=== PATIENT | female | born 1960 | race Caucasian/White ===

== ENCOUNTER → 2020-08-18 11:11 | Outpatient (CLI) | payer OTHER, SELFPAY ==
[2020-08-18 13:01] LABS: COVID19 -Nasal RAPID Negative (Negative)
== END ==
PROVIDERS: Family Provider Family Medicine; PCP Family Medicine; Visit Provider Physician Assistant
DX: Z01.812 Encounter for preprocedural laboratory examination (principal); Z20.822 Contact with and (suspected) exposure to COVID-19
CPT/HCPCS: 87635

== ENCOUNTER 2020-08-20 13:45 | Day surgery (SDC) | payer OTHER, SELFPAY ==
--- NOTE | 2020-08-20 | PATH_ITS ---
[facility] Accession Number: [id number] . 01 Material submitted: . PART A: rectum - RECTAL POLYP PART B: colon - TRANSVERSE COLON - POLYP PART C: colon - RANDOM TISSUE COLON . 02 Diagnosis: A. Rectum, Polyp, Biopsy: Hyperplastic polyp. . B. Transverse Colon, Polyp, Biopsy: Tubular adenoma. . C. Random Colon, Biopsies: Lymphocytic colitis. Negative for granulomas, dysplasia and malignancy. MRV 08/26/2020 1107 Local . 02 Electronically signed: . Veronica Sheriff MD, Pathologist NPI- [id number] . 01 Gross description: . Part A: RECTAL POLYP: Received in formalin are 2 fragment(s) of hadley, soft tissue measuring 0.2 x 0.2 x 0.2 cm to 0.4 x 0.2 x 0.2 cm submitted entirely in 1 cassette(s) Part B: TRANSVERSE COLON - POLYP: Received in formalin is 1 fragment(s) of hadley, soft tissue measuring 0.2 x 0.2 x 0.1 cm submitted entirely in 1 cassette(s) Part C: RANDOM TISSUE COLON: Received in formalin are multiple fragment(s) of hadley, soft tissue measuring 0.1 x 0.1 x 0.1 cm to 0.4 x 0.3 x 0.3 cm submitted entirely in 1 cassette(s) /MARGARITA 08/22/2020 1859 Local . 02 Pathologist provided ICD-10: D12.3, K52.89 . 02 CPT . 398215, [id number], [id number] Performed at: [address], [place], [place] [id number] MD Darrian Olivera MD Phone: [phone] Performed at: 02 [facility] [place] [address] [place] [id number] MD Veronica Sheriff MD Phone: [phone]
[2020-08-20 14:04] VITALS: BP 134/83; PULSE 74; RESP 13; TEMP 36.9; O2SAT 100; BMI 31.7
[2020-08-20 14:24] VITALS: BMI 31.7
[2020-08-20] MEDS: LACTATED RINGERS 1,000 ML 200 ML IV (14:24)
--- NOTE | 2020-08-20 15:25 | P.HP_ITS ---
History of Present Illness History of Present Illness Chief complaint: [facility] Patient History Medical History (Updated 08/20/20 @ 14:19 by Елена Oleary RN) Diabetes High cholesterol Hypertension Family & Social History Social History: household members spouse Tobacco & Substance use: Smoking Status Never smoker alcohol intake current alcohol intake frequency 0-2 drinks per day Substance Use Type does not use Meds Home Medications and Allergies Home Medications Medication Instructions Recorded Confirmed Type hydrocodone-acetaminophen [[place]] 1 - 2 tab PO Q4HP PRN #60 tab 05/06/16 Rx atorvastatin 08/20/20 History celecoxib mg 08/20/20 History famotidine 08/20/20 History hydrochlorothiazide 08/20/20 History insulin NPH isoph U-100 human unit SUBCUT 08/20/20 History [Humulin N NPH Insulin KwikPen] losartan 08/20/20 History metformin mg 08/20/20 History sertraline mg 08/20/20 History spironolactone 08/20/20 History Allergies Allergy/AdvReac Type Severity Reaction Status Date / Time amoxicillin [AMOXICILLIN] Allergy Severe Hives Unverified 08/20/20 14:14 lisinopril [LISINOPRIL] Allergy Severe Cough Unverified 08/20/20 14:14 Penicillins [PENICILLINS] Allergy Severe HIVES Unverified 08/03/17 12:09 Sulfa (Sulfonamide Allergy Severe HIVES Unverified 08/03/17 12:09 Antibiotics) [SULFA (SULFONAMIDE ANTIBIOTICS)] cephalexin [CEPHALEXIN] Allergy Intermediate HIVES Unverified 08/03/17 12:09 latex [LATEX] Allergy Intermediate RASH Unverified 08/03/17 12:09 Review of Systems Review of Systems ROS: Yes All systems reviewed with the patient and are negative except as otherwise documented Exam Vital Signs (past 8 hours): - 08/20/20 14:04 Temperature 98.4 F Pulse Rate 74 Respiratory Rate 13 Blood Pressure 134/83 Pulse Oximetry 100 Oxygen Delivery Method Room Air Narrative Exam Narrative: Awake alert and oriented x3, pupils equal round reactive to light, oropharynx clear, heart regular rate and rhythm, lungs clear to auscultation bilaterally, abdomen nontender and nondistended, extremities without edema, no gross neurologic deficits noted Assessment & Plan Assessment & Plan narrative: Fecal urgency, fecal incontinence, diarrhea, dysphagia, heartburn for colonoscopy and possibly EGD COVID-19 COVID-19 status: Negative
[2020-08-20] MEDS: fentaNYL 250 MCG/5 ML INJ IV (15:39)
[2020-08-20] MEDS: MIDAZOLAM 5 MG/5 ML VIAL IV (15:41)
[2020-08-20 16:00] VITALS: BP 129/77; PULSE 85; RESP 12; TEMP 37.1; O2SAT 98
--- NOTE | 2020-08-20 16:01 | PM.OP.ENDO ---
Operative Date/Time/Diagnoses Date of procedure: 08/20/20 Procedure & Clinicians Study performed: Colonoscopy with forceps and snare polypectomy Moderate conscious sedation was administered by the endoscopy nurse and supervised by the endoscopist. The following parameters were monitored: Oxygen saturation, heart rate, blood pressure, and response to care. 7 mg midazolam, 150mcg fentanyl given Same procedure as scheduled: Yes Indications: Diarrhea, fecal incontinence with fecal urgency. Last colonoscopy was about 3 years ago Procedure Notes Procedure in detail: Prior to the procedure, history and physical was performed, and patient medications and allergies were reviewed. Preprocedure nursing history and assessment was reviewed. Patient identification and proposed procedure were verified by the physician and nurse in the procedure room. The physical status of the patient was reassessed after the procedure. After informed consent was obtained including risks, benefits, and alternatives, the scope was passed under direct vision. Throughout the procedure, the patient's blood pressure, pulse, and oxygen saturations were monitored continuously. The colonoscope was introduced through the anus and advanced to the cecum and terminal ileum. Appendiceal orifice and ileocecal valve identified. The patient tolerated the procedure well. Bowel prep was deemed adequate to detect polyps greater than 5 mm. Perianal examination and MATI were unremarkable. Retroflexion in the rectum revealed grade 2 internal hemorrhoids. Two 3 mm sessile polyps were removed from the rectum using a Jumbo cold forceps and retrieved A 4 mm sessile polyp in the transverse colon was removed using a cold snare and retrieved The remainder of the colon was normal appearing. Random colon biopsies taken to rule out microscopic colitis The terminal ileum was normal appearing. Impression: Internal hemorrhoids Two 3 mm polyps removed from the rectum 4 mm polyp removed from the transverse colon Normal appearing colonic mucosa. Biopsied to rule out microscopic colitis. Normal appearing terminal ileum Complications: other (EBL minimal. No complications) Post-procedure Plan for aftercare: Follow-up pathology results Repeat colonoscopy at a date to be determined based on pathology results Schedule EGD at the next available appointment Follow-up in GI clinic after EGD Resume home medications Resume previous diet Patient has a contact number available for emergencies. The signs and symptoms of potential delayed complications were discussed with the patient. Return to normal activities tomorrow. Written discharge instructions were provided to the patient. Discharge home with escort
[2020-08-20 16:05] VITALS: BP 140/71; PULSE 83; RESP 12; O2SAT 98
[2020-08-20 16:10] VITALS: BP 153/86; PULSE 76; RESP 14; O2SAT 97
[2020-08-20 16:15] VITALS: BP 123/67; PULSE 76; RESP 12; O2SAT 97
[2020-08-20 16:40] VITALS: BP 121/67; PULSE 76; RESP 15; TEMP 36.7; O2SAT 99
== END 2020-08-20 16:42 | disposition home or self-care (01) ==
PROVIDERS: Family Provider Family Medicine; PCP Internal Medicine; Referring Provider Internal Medicine; Visit Provider Internal Medicine
PROC: 0DJ08ZZ Inspection of Upper Intestinal Tract, Via Natural or Artificial Opening Endoscopic (ICD-10-PCS; CPT 43235; principal; 2020-08-20 15:00)
PROC: 0DJD8ZZ Inspection of Lower Intestinal Tract, Via Natural or Artificial Opening Endoscopic (ICD-10-PCS; CPT 45378; 2020-08-20 15:00)
DX: K52.832 Lymphocytic colitis (principal); R15.2 Fecal urgency; R13.14 Dysphagia, pharyngoesophageal phase; R12 Heartburn; I10 Essential (primary) hypertension; E78.00 Pure hypercholesterolemia, unspecified; E11.9 Type 2 diabetes mellitus without complications; Z79.4 Long term (current) use of insulin; K64.1 Second degree hemorrhoids; D12.3 Benign neoplasm of transverse colon
CPT/HCPCS: 45385; J2250; J3010

== ENCOUNTER → 2020-10-01 08:37 | Outpatient (CLI) | payer OTHER, SELFPAY ==
[2020-10-01 13:25] LABS: COVID19 -Nasal RAPID Negative (Negative)
== END ==
PROVIDERS: Family Provider Family Medicine; PCP Internal Medicine; Visit Provider Physician Assistant
DX: Z01.812 Encounter for preprocedural laboratory examination (principal); Z20.822 Contact with and (suspected) exposure to COVID-19
CPT/HCPCS: 87635

== ENCOUNTER → 2020-10-02 06:36 | Day surgery (SDC) | payer OTHER, SELFPAY ==
[2020-09-29 15:07] VITALS: BMI 32.0
[2020-10-02 06:59] VITALS: BMI 32.0
[2020-10-02 07:00] VITALS: BP 117/77; PULSE 74; RESP 16; TEMP 37.3; O2SAT 99
[2020-10-02] MEDS: LACTATED RINGERS 1,000 ML 42 ML IV ×2 (07:32→08:23)
--- NOTE | 2020-10-02 07:35 | PM.PREOP ---
Pre-operative Note COVID-19 COVID-19 status: Negative Interval Note History & Physical reviewed/Exam performed by Physician: Yes Changes to H&P: No
[2020-10-02] MEDS: MIDAZOLAM 2 MG/2 ML VIAL IV (07:36)
[2020-10-02] MEDS: fentaNYL 100 MCG/2 ML INJ IV (07:37)
--- NOTE | 2020-10-02 07:53 | SUR.PREOP ---
Addendum entered by Elsie Hawkins R.N. 10/02/20 07:56: needle in at 0737 need out 0743. See EMR for meds. Original Note: Block start time 0735. Time out done. Monitoring initiated and maintained throughout procedure. Oxygen and 2L via NC placed and medications given by this RN per anesthesiologist instructions. Patient remained stable throughout procedure, no adverse reactions noted. Block end time 0743.
[2020-10-02] MEDS: CLINDAMYCIN 900 MG/50 ML PIGGYBACK 50 MG IV (07:55)
--- NOTE | 2020-10-02 08:06 | SUR.PREOP ---
5534 charting should have been at 0750
[2020-10-02] MEDS: SODIUM CHLORIDE IRRIG SOLUTION 3,000 ML, EPINEPHrine 1 MG IRR (08:25)
[2020-10-02] MEDS: BUPIVACAINE 0.5% W/ EPI (PF) 30 ML VIAL INJ (08:25)
--- NOTE | 2020-10-02 08:28 | SUR.OPER ---
Beach chair with Maquet shoulder positioner. Lower body on padded OR bed. Head in foam padded head cradle, secured with straps. Non-operative arm secured <90 degrees abduction. Pillow under knees. Safety belt at thigh. Cloth tape over blanket over lower legs.
[2020-10-02 09:16] VITALS: BP 130/71; PULSE 100; RESP 16; TEMP 36.7; O2SAT 94
--- NOTE | 2020-10-02 09:19 | PM.OP.1 ---
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 Debridement of the rotator cuff as well as a subacromial decompression and distal clavicle excision Same procedure as scheduled: Yes Indications: Patient with right shoulder impingement as well as arthritic changes to the glenohumeral joint and AC joint and rotator cuff pathology that was unresponsive to conservative treatment. Surgeon: Ishaan Diallo Gas Jockey: Ronaldo Ward Anesthesia Type: General and Peripheral nerve block Operative Notes Findings: Signs of arthritic changes to the glenohumeral joint with thinning of the cartilage but no sign of any full-thickness cartilage loss. Significant degenerative changes throughout the labrum particularly superiorly. Almost complete tear of the biceps tendon. With degenerative changes throughout the joint as well as partial tearing mainly involving the supraspinatus. Infraspinatus and subscapularis had signs of tendinopathy but no significant tearing. Quite a bit of synovitis in the glenohumeral joint. Subacromial space had increased fluid in the subacromial and subdeltoid space. Bursal side of the rotator cuff had some mild fraying but no sign of any high-grade partial tears or full-thickness tears. AC joint arthritis as well as impingement lesions. Significant synovitis as well as bursitis throughout the subacromial and subdeltoid space. Closure Type: primary Specimen(s): none sent Estimated Blood Loss (mL): 5 Procedure in detail: On date of service, Patient was met in the holding area. The operative site was signed and witnessed by the OR staff. The surgeries once again discussed with the patient and any remaining questions they had were answered fully. Patient was taken back to the operating theater and placed on the operating table in a supine position. Great care was taken to ensure that all bony prominences were properly padded. Patient was then placed into the beach chair position. The head and neck were properly positioned and secured. A timeout was performed verifying patient's name, procedure, and the operative site. The upper extremity was then prepped and draped in the normal sterile fashion. Previously, the bony anatomy and portal sites were marked out as well as injected with Marcaine with epinephrine. An 11 blade was used to make an incision in the posterior aspect of the shoulder. The camera was placed, and a diagnostic shoulder scope was performed. Findings listed above. Next under direct visualization, a anterior portal was made. Shaver was brought in through the anterior portal and extensive debridement of the glenohumeral joint was performed. Shaver was used to debride the degenerative changes throughout the labrum particularly the superior labrum. The biceps tendon was showing signs of high-grade tearing. Tenotomy was performed in the remaining tissue was debrided. Partial tearing to the articular surface mainly of the supraspinatus mild to moderate but no sign of any high-grade partial tears. This was also debrided using the shaver. This patient had degenerative changes throughout the glenohumeral joint with signs of synovitis which was also debrided using the shaver. Next the camera was placed into the subacromial space. A lateral portal was obtained under direct visualization. A combination of the shaver and vapor wand, a debridement of the inflamed tissue as well as inflamed bursa was performed in the subacromial and subdeltoid space.. The lateral gutter was also cleaned out. This gave us good visualization of the bursal aspect of the rotator cuff as well as the acromial arch. There was an obvious impingement lesion in the acromial arch. Next we turned our attention to the subacromial decompression. Next, a mechanical rasp was then used to do a subacromial decompression. This allowed us to convert the acromion to a type I acromial. This also allowed us to shave down the bony lesion in the acromial space. The rasp was placed into the lateral portal as well as the anterior portal in order to do a complete subacromial decompression. We next turned our attention to the distal clavicle. Using the shaver in the vapor wand we were able to clean out all the soft tissue around the distal clavicle as well as into the a.c. joint. This gave us good visualization of the arthritic changes to the distal clavicle as well as good of the a.c. joint allowing us to assess our distal clavicle excision. Of the inferior osteophytes coming off the distal clavicle. Using the mechanical rasp in the anterior portal, we were able to remove the inferior osteophytes as well as do a distal clavicle excision. The camera was then placed into the anterior portal which gave us a direct visualization of the a.c. joint allowing us to assess the distal clavicle excision. We then turned our attention to the rotator cuff tear. There was no signs of any high-grade partial bursal sided tears. Shaver was used to debride the frayed tissue of the rotator cuff as well as to remove any remaining inflamed bursal tissue. The shoulder was then taken through range of motion and there was no sign of any additional impingement. Patient's shoulder was then cleaned dried and dressed and patient was taken to the PACU in stable condition. Complications: none Post-operative Condition: stable Disposition: PACU Plan for aftercare: Patient will follow our postoperative protocol for subacromial decompression with distal clavicle excision
[2020-10-02 09:21] VITALS: BP 126/78; BP 145/76; PULSE 93; PULSE 97; RESP 14; RESP 16; O2SAT 94; O2SAT 95
[2020-10-02 09:39] VITALS: BP 126/78; PULSE 94; RESP 16; TEMP 36.7; O2SAT 95
[2020-10-02 10:02] VITALS: BP 122/74; PULSE 78; RESP 16; TEMP 36.7; O2SAT 98
== END | disposition home or self-care (01) ==
PROVIDERS: Family Provider Family Medicine; PCP Internal Medicine; Referring Provider Internal Medicine; Visit Provider Orthopaedic Surgery
PROC: (CPT 29827; principal; 2020-10-02 07:45)
DX: M75.111 Incomplete rotator cuff tear or rupture of right shoulder, not specified as traumatic (principal); M75.51 Bursitis of right shoulder; M75.21 Bicipital tendinitis, right shoulder; M75.41 Impingement syndrome of right shoulder; M65.811 Other synovitis and tenosynovitis, right shoulder; M19.011 Primary osteoarthritis, right shoulder; M25.711 Osteophyte, right shoulder; E66.9 Obesity, unspecified; I10 Essential (primary) hypertension; E78.5 Hyperlipidemia, unspecified; E11.9 Type 2 diabetes mellitus without complications; F32.9 Major depressive disorder, single episode, unspecified; M06.9 Rheumatoid arthritis, unspecified; W18.30XA Fall on same level, unspecified, initial encounter; Z68.32 Body mass index [BMI] 32.0-32.9, adult; Z79.4 Long term (current) use of insulin
CPT/HCPCS: 29823; 29824; 29826; 64415; J0171; J0330; J1100; J2250; J2405; J2704; J3010

== ENCOUNTER → 2022-08-24 09:00 | Outpatient (CLI) | payer OTHER, SELFPAY ==
--- NOTE | 2022-08-24 | DI.ECHO.S_ITS ---
Version: 1 Study ID: [id number] [place] [address] Name: KAYLA PAREDES Study Date: 08/24/2022, 9: 18 AM : 1960 BP: 150 / 95 mmHg Gender: Female Height: 69 in Age: 61 Years Weight: 220 lb BSA: 2.15 mA? Ordering: LÓPEZ JOSHI Referring: LÓPEZ JOSHI Clinician: Yancy Godoy Reason For Study: CARDIAC MURMUR History: Summary Statements Normal sinus rhythm. Normal LV size and wall thickness. Normal wall motion and LV systolic function. EF is 55-60%. Stage I diastolic dysfunction. Moderate MAC without associated significant regurgitation Aortic valve leaflets are mildly thickened and calcified with mild associated aortic stenosis. Peak velocity is 2.3 m/sec with mean gradient of 13 mm Hg. Procedure: A two-dimensional transthoracic echocardiogram with color flow and Doppler was performed. The study quality was technically adequate. There is no prior echocardiogram noted for this patient. The patient was in sinus rhythm with heart rates between 71-86 bpm during the exam. Left Ventricle: The ejection fraction is estimated to be 55-60%. The left ventricle is normal in size and wall thickness. Right Ventricle: The right ventricle is normal in size and function. Atria: There is no Doppler evidence for an interatrial shunt. The left atrium is borderline dilated. Right atrial size is normal. Mitral Valve: There is trace mitral regurgitation. The mitral valve mean gradient is 3.6 mmHg. There is moderate mitral annular calcification. The mitral valve leaflets are mildly calcified. Aortic Valve: There is trace aortic regurgitation. There is mild aortic stenosis. The peak aortic velocity is 2.2 m/sec. The aortic valve mean gradient is 12 mmHg. The calculated aortic valve area is 1.5 cm2. The aortic valve is mildly calcified. Tricuspid Valve: There is trace tricuspid regurgitation. The tricuspid valve is normal in structure and function. Pulmonic Valve: There is no pulmonic valvular regurgitation. The pulmonic valve is not well visualized. Great Vessels: The dimensions of the ascending aorta are normal. The aortic root is normal size. The IVC is of normal diameter and collapses greater than 50% with a sniff. This suggests a low right atrial pressure of 3 mm Hg. Pericardium/ Pleura: There is no pericardial effusion. There is no pleural effusion. 2D and M-Mode Measurements and Calculations LVIDd: 4.4 cm LVOT diam: 2.02 cm LVIDs: 3.1 cm Ao root diam: 3.1 cm IVSd: 0.85 cm asc Aorta Diam: 3.2 cm LVPWd: 0.99 cm Ao Arch Diam (Prox Trans): 2.39 cm LV lawrence. diameter/BSA (cm/m^2): 2.04 LV sys. 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 IVC diam: 1.63 cm LA A2 area: 24.6 packing floor worker? RA area: 13.8 packing floor worker? LA length (vol): 5.4 cm RA long axis: 4.9 cm LA vol: 75.6 ml RA vol: 32.6 ml LA vol index: 35.1 ml/mA? RA : 15.2 ml/mA? Doppler Measurements and Calculations Ao V2 max: 223.6 cm/sec LVOT Max Ousmane: 102.2 cm/sec Ao V2 mean: 165.5 cm/sec LV V1 max P.2 mmHg Ao V2 VTI: 45.0 cm LV V1 VTI: 21.8 cm Ao max P.5 mmHg SV(LVOT): 70.3 ml Ao mean P.2 mmHg LETICIA(I,D): 1.56 packing floor worker? LETICIA(V,D): 1.47 packing floor worker? LETICIA indexed to BSA (cm^2/m^2): 0.73 sev ratio: 0.49 MV E max ousmane: 77.8 cm/sec MV dec time: 0.36 sec MV A max ousmane: 171.0 cm/sec MV mean P.6 mmHg MV E/A: 0.46 MVA(VTI): 2.03 packing floor worker? Med Peak E' Ousmane: 4.2 cm/sec Lat Peak E' Ousmane: 7.9 cm/sec E/e' average: 14.3 PA V2 max: 100.1 cm/sec PA mean P.09 mmHg Electronically signed by: Chanelle Gamino M.D. 08/25/2022, 12: 16 AM
== END ==
PROVIDERS: Family Provider Family Medicine; PCP Internal Medicine; Referring Provider Internal Medicine; Visit Provider Internal Medicine
DX: I34.81 Nonrheumatic mitral (valve) annulus calcification (principal); I35.0 Nonrheumatic aortic (valve) stenosis; R01.1 Cardiac murmur, unspecified
CPT/HCPCS: 93306

== ENCOUNTER 2024-04-16 10:19 | Emergency (ER) | payer OTHER, SELFPAY ==
[2024-04-16] VITALS (16 sets, daily range): BP systolic 158–224; BP diastolic 76–111; PULSE 76–98; RESP 16–31; TEMP 36.9; O2SAT 94–97; BMI 29.5
--- NOTE | 2024-04-16 10:33 | EKG_ITS ---
[address] [address] Test Date: 2024-04-16 Pat Name: Skylar Lemons Department: Room: Gender: Female [employer]: MARYANNE : 1960 Requested By: Order Number: [id number] Reading MD: Tony Pompa Measurements Intervals Gaston Rate: 78 P: 55 AR: 140 QRS: 6 QRSD: 78 T: 65 QT: 398 QTc: 453 Interpretive Statements Normal sinus rhythm Electronically Signed On 04-16-2024 18:43:48 PST by Tony Pompa
--- NOTE | 2024-04-16 12:31 | ED_ITS ---
HPI - General Adult General Chief complaint: Hypertension Stated complaint: High blood pressure Time Seen by Provider: 04/16/24 12:23 History of Present Illness HPI narrative: 63-year-old female with history of hypertension has been taking losartan, recent dose reductions from previous 200 mg daily, per PCP had been having dose reductions and 50 mg increments down to 50 mg daily, however she has had elevated blood pressure readings at home the last few days, took her own extra 50 mg dose for a total of 100 the last couple of days. She takes the doses in the evenings. Last dose 100 mg total losartan last night, not due to take anything more until tonight. She has elevated blood pressure readings at home, concerned about her blood pressure. Related Data Home Medications Medication Instructions Recorded Confirmed atorvastatin 80 mg tablet 80 mg PO DAILY 08/20/20 10/02/20 celecoxib 200 mg capsule 200 mg PO DAILY 08/20/20 10/02/20 hydrochlorothiazide 25 mg tablet 25 mg PO DAILY 08/20/20 10/02/20 metformin 1,000 mg tablet 1,000 mg PO BID 08/20/20 10/02/20 sertraline 100 mg tablet 100 mg PO DAILY 08/20/20 10/02/20 spironolactone 50 mg tablet 50 mg PO DAILY 08/20/20 10/02/20 insulin NPH-regular 70-30 U-100 40 unit SUBCUT DIRECTED 09/29/20 10/02/20 insulin 100 unit/mL subcutaneous pen (Humulin 70/30 U-100 KwikPen) losartan 100 mg tablet (Cozaar) 100 mg PO DAILY 09/29/20 10/02/20 calcium carbonate 600 mg-vitamin 1 tab PO BID 10/02/20 10/02/20 D3 5 mcg (200 unit) tablet cholecalciferol (vitamin D3) 125 125 mcg PO DAILY 10/02/20 10/02/20 mcg (5,000 unit) tablet (Vitamin D3) loperamide 2 mg capsule 2 mg PO Q3D PRN Diarrhea 10/02/20 10/02/20 omeprazole 40 mg capsule,delayed 40 mg PO DAILY 10/02/20 10/02/20 release Previous Rx's Medication Instructions Recorded hydroxyzine pamoate 25 mg capsule 25 mg PO TID-QID PRN spasms #60 10/02/20 (Vistaril) caps oxycodone-acetaminophen 5 mg-325 2 tab PO Q4-6H PRN pain #60 tabs 10/02/20 mg tablet (Percocet) Allergies Allergy/AdvReac Type Severity Reaction Status Date / Time amoxicillin [AMOXICILLIN] Allergy Severe Hives Unverified 08/20/20 14:14 lisinopril [LISINOPRIL] Allergy Severe Cough Unverified 08/20/20 14:14 Penicillins [PENICILLINS] Allergy Severe HIVES Unverified 08/03/17 12:09 Sulfa (Sulfonamide Allergy Severe HIVES Unverified 08/03/17 12:09 Antibiotics) [SULFA (SULFONAMIDE ANTIBIOTICS)] cephalexin [CEPHALEXIN] Allergy Intermediate HIVES Unverified 08/03/17 12:09 latex [LATEX] Allergy Intermediate RASH Unverified 08/03/17 12:09 Patient History Medical History (Updated 04/16/24 @ 15:04 by Harpreet Mendoza MD) IBS (irritable bowel syndrome) RAD (reactive airway disease) Anxiety GERD (gastroesophageal reflux disease) Depression Osteoarthritis Rheumatoid arthritis High cholesterol Diabetes Hypertension Surgical History (Updated 09/29/20 @ 15:18 by Marii Cartwright RN) History of surgery History of surgery History of arthroscopy of both knees History of bilateral carpal tunnel release History of bilateral oophorectomy History of esophagogastroduodenoscopy (EGD) Hx of colonoscopy History of hysterectomy History of knee replacement History of surgery Hx of right breast biopsy Hx of tonsillectomy Social History household members: spouse Smoking Status: Never smoker alcohol intake: current Smoking Status: Never smoker alcohol intake frequency: 0-2 drinks per day Exam Narrative Exam Narrative: GENERAL: Well-developed patient, in mild distress. HEAD: Atraumatic. Normocephalic. EYES: Pupils equal round and reactive. Extraocular motions intact. No scleral icterus. No injection or drainage. ENT: Nose without bleeding, purulent drainage. Throat without erythema, tonsillar hypertrophy or exudate. Airway patent. NECK: Trachea midline. Non tender CARDIOVASCULAR: Regular rate and rhythm without murmurs, gallops, or rubs. RESPIRATORY: Clear to auscultation. Breath sounds equal bilaterally. No wheezes, rales, or rhonchi. GASTROINTESTINAL: Abdomen soft, non-tender, nondistended. EXTREMITIES: No edema or joint tenderness. BACK: Nontender without deformity or crepitance. No flank tenderness. NEURO: AOx3. Motor functions grossly nonfocal SKIN: No rash or erythema of visible areas Initial Vital Signs Initial Vital Signs: Vital Signs Temperature 98.5 F 04/16/24 10:25 Pulse Rate 78 04/16/24 10:25 Respiratory Rate 16 04/16/24 10:25 Blood Pressure 224/106 H 04/16/24 10:25 Pulse Oximetry 97 04/16/24 10:25 Oxygen Delivery Method Room Air 04/16/24 10:25 Course Orders Ordered: ED Orders 04/16/24 10:33 EKG-12 Lead Routine 04/16/24 10:48 CBC Auto Diff [Complete Blood Count AUTO DIFF] Stat CMP [Comprehensive Metabolic Panel] Stat Troponin I Stat 04/16/24 12:50 Urinalysis and Microscopic Stat Discontinued Medications Acetaminophen (Acetaminophen 325 Mg Tablet) 650 mg PO NOW ONE Stop: 04/16/24 15:12 Last Admin: 04/16/24 15:17 Dose: 650 mg Documented By: WILEY Ibuprofen (Ibuprofen 400 Mg Tablet) 400 mg PO NOW ONE Stop: 04/16/24 15:12 Last Admin: 04/16/24 15:17 Dose: Not Given Documented By: WILEY Losartan Potassium (Losartan 50 Mg Tablet) 100 mg PO NOW ONE Stop: 04/16/24 12:39 Last Admin: 04/16/24 12:48 Dose: 100 mg Documented By: THIERRY Vital Signs Vital signs: Vital Signs - 8 hr 04/16/24 11:30 04/16/24 11:30 04/16/24 11:54 Pulse Rate 85 78 Respiratory Rate Blood Pressure 171/84 H Pulse Oximetry 96 96 Oxygen Delivery Method 04/16/24 11:54 04/16/24 11:56 04/16/24 11:56 Pulse Rate 76 Respiratory Rate 27 H Blood Pressure 211/98 H 192/99 H Pulse Oximetry 97 Oxygen Delivery Method 04/16/24 12:00 04/16/24 12:00 04/16/24 12:30 Pulse Rate 82 77 Respiratory Rate 27 H 23 Blood Pressure 185/98 H Pulse Oximetry 96 96 Oxygen Delivery Method 04/16/24 12:30 04/16/24 12:48 04/16/24 12:48 Pulse Rate 78 Respiratory Rate 23 Blood Pressure 202/104 H 183/97 H Pulse Oximetry 97 Oxygen Delivery Method 04/16/24 13:00 04/16/24 13:00 04/16/24 13:30 Pulse Rate 80 Respiratory Rate 22 Blood Pressure 177/97 H 173/101 H Pulse Oximetry 95 Oxygen Delivery Method 04/16/24 13:30 04/16/24 14:00 04/16/24 14:00 Pulse Rate 79 81 Respiratory Rate 26 H Blood Pressure 169/94 H Pulse Oximetry 96 95 Oxygen Delivery Method 04/16/24 14:30 04/16/24 14:30 04/16/24 15:00 Pulse Rate 84 Respiratory Rate 20 Blood Pressure 189/89 H 188/98 H Pulse Oximetry 95 Oxygen Delivery Method Room Air 04/16/24 15:00 Pulse Rate 86 Respiratory Rate 22 Blood Pressure Pulse Oximetry 96 Oxygen Delivery Method Medical Decision Making Lab Data Lab results reviewed: Yes I reviewed the patient's lab results. Lab results narrative: White blood cell count 4800, hemoglobin 12.2, platelets adequate. BUN 22 with creatinine 0.91, sodium potassium unremarkable. Liver functions unremarkable. Troponin negative/unmeasurable. 04/16/24 10:48 04/16/24 10:48 Labs: Lab Results 04/16/24 04/16/24 Range/Units 10:48 12:50 WBC 4.8 (4.5-11.0) X10^3/uL RBC 4.36 (4.0-5.2) X10^6/uL Hgb 12.2 (12.0-16.0) g/dL Hct 36.9 (36-46) % MCV 84.5 (80-100) fL MCH 27.9 (26-34) PG MCHC 33.0 (30-36) % RDW 14.1 (11.6-14.8) % Plt Count 232 (150-400) X10^3/uL Neut % (Auto) 61.5 (50-75) % Lymph % (Auto) 20.4 L (25-40) % [place] % (Auto) 12.1 (3-14) % Eos % (Auto) 4.7 H (2-4) % Baso % (Auto) 1.3 (0-2) % Neut # (Auto) 2900 (9578-2254) /uL Lymph # (Auto) 1000 L (2653-5980) /uL [place] # (Auto) 600 (0-900) /uL Eos # (Auto) 200 (0-450) /uL Baso # (Auto) 100 (0-100) /uL Sodium 139 (137-145) mmol/L Potassium 3.7 (3.4-5.1) mmol/L Chloride 108 H (98-107) mmol/L Carbon Dioxide 25 (22-32) mmol/L BUN 22 H (7-17) mg/dL Creatinine 0.91 (0.52-1.04) mg/dL Estimated GFR > 60 (>60) mL/min BUN/Creatinine Ratio 24.2 H (6-22) Glucose 87 (80-110) mg/dL Calcium 9.0 (8.4-10.2) mg/dL Total Bilirubin 0.9 (0.2-1.3) mg/dL AST 32 (14-36) IU/L ALT 24 (<35) IU/L Alkaline Phosphatase 99 (38-126) U/L Troponin I < 0.012 (0.01-0.034) ng/mL Total Protein 7.1 (6.3-8.2) g/dL Albumin 4.1 (3.5-5.0) g/dL Globulin 3.0 (1.7-4.1) g/dL Albumin/Globulin Ratio 1.4 (1.0-2.8) Urine Color Yellow Urine Appearance Clear Urine pH 6.0 (4.5-8.0) Ur Specific [place] 1.010 (1.000-1.035) Urine Protein Trace H (Negative) Urine Glucose (UA) Negative (Negative) g/dL Urine Ketones Negative (NEGATIVE) Urine Occult Blood Negative (Negative) Urine Nitrate Negative (Negative) Urine Bilirubin Negative (NEGATIVE) Urine Urobilinogen 0.2 (0.2) E.U./dL Ur Leukocyte Esterase Negative (NEGATIVE) Urine RBC 0-1/hpf (0-5/HPF) Urine WBC 0-1/hpf (0-5/HPF) Ur Squamous Epith Cells 0-1 /hpf (0-5/HPF) Urine Bacteria Occasional (0-1) (None) Ur Culture Indicated? Cult not indicated Vol Urine Centrifuged 10ml (spun) ECG Data Attestation: I personally reviewed and interpreted this ECG as follows: Interpretation: Normal sinus rhythm with rate of 78, no obvious ST segment elevation or depression changes. MI 140, QRS 78, QTC 453. MDM Narrative Medical decision making narrative: History of hypertension, recent tapering of losartan from 200 mg daily down to 50 mg daily apparently due to low blood pressure readings, now with elevated blood pressure readings last few days, self adjusting her dose to 100 mg last couple of days, due for losartan tonight, elevated blood pressure reading at home. We will give losartan 100 mg dose now. EKG and screening studies unremarkable. Systolic blood pressure 170-180, decreasing. Advised patient to consider losartan 100 mg twice daily for now, follow her blood pressures in clinic, contact her PCP early this week. Return precautions discussed. Discharge Plan Departure Patient Disposition: Home Clinical Impression: Hypertension Instructions: DI for High Blood Pressure Activity Restrictions/Additional Instructions: Hypertension with varied response to Losartan blood pressure medication. Prior tolerance to losartan at 200 mg daily but then subsequent low blood pressures. Eventually weaned down to 50 mg daily. Elevated blood pressures last few days. Evening dose losartan given earlier, blood pressure improved some here in clinic. Advised change of your current losartan regimen for now to take 100 mg in the morning and 100 mg in the evening, perhaps this will be better tolerated and hopefully give you more even blood pressure control. Follow up with your regular doctor this week with blood pressure measurement readings. Return earlier to this/nearest emergency department for any change worsening symptoms or any concerns prior Prescriptions: No Action atorvastatin 80 mg tablet 80 mg PO DAILY celecoxib 200 mg capsule 200 mg PO DAILY hydrochlorothiazide 25 mg tablet 25 mg PO DAILY metformin 1,000 mg tablet 1,000 mg PO BID sertraline 100 mg tablet 100 mg PO DAILY spironolactone 50 mg tablet 50 mg PO DAILY losartan [Cozaar] 100 mg Tablet 100 mg PO DAILY Humulin 70/30 U-100 KwikPen 100 unit/mL (70-30) Insulin Pen 40 unit SUBCUT DIRECTED loperamide 2 mg Capsule 2 mg PO Q3D PRN (Reason: Diarrhea) calcium carbonate-vitamin D3 600 mg(1,500mg) -200 unit Tablet 1 tab PO BID omeprazole 40 mg capsule,delayed release(DR/EC) 40 mg PO DAILY cholecalciferol (vitamin D3) [Vitamin D3] 125 mcg (5,000 unit) Tablet 125 mcg PO DAILY oxycodone-acetaminophen [Percocet] 5-325 mg tablet 2 tab PO Q4-6H PRN (Reason: pain) Qty: 60 0RF hydroxyzine pamoate [Vistaril] 25 mg capsule 25 mg PO TID-QID PRN (Reason: spasms) Qty: 60 0RF Referrals: Reno Velazquez MD [Primary Care Provider] - Stand Alone Forms: Patient Portal/API/Survey
[2024-04-16] MEDS: LOSARTAN 50 MG TABLET 100 MG PO (12:48)
[2024-04-16 12:51] LABS: Add Manual Diff / Slide Review NO; Basophils Absolute Auto 100 /uL (0-100); Basophils Percent Auto 1.3 % (0-2); Eosinophils Absolute Auto 200 /uL (0-450); Eosinophils Percent Auto 4.7 % (2-4); Hematocrit 36.9 % (36-46); Hemoglobin 12.2 g/dL (12.0-16.0); Lymphocytes Absolute Auto 1000 /uL (1100-4500); Lymphocytes Percent Auto 20.4 % (25-40); Mean Corpuscular Hemoglobin 27.9 PG (26-34); Mean Corpuscular Volume 84.5 fL (80-100); Monocytes Absolute Auto 600 /uL (0-900); Monocytes Percent Auto 12.1 % (3-14); Neutrophils Absolute Auto 2900 /uL (1500-7000); Neutrophils Percent Auto 61.5 % (50-75); Platelet Count 232 X10^3/uL (150-400); Red Blood Cell Count 4.36 X10^6/uL (4.0-5.2); Red Cell Distribution Width 14.1 % (11.6-14.8); White Blood Cell Count 4.8 X10^3/uL (4.5-11.0)
[2024-04-16 12:57] LABS: Alanine Aminotransferase 24 IU/L (<35); Albumin 4.1 g/dL (3.5-5.0); Albumin Globulin Ratio 1.4 (1.0-2.8); Alkaline Phosphatase 99 U/L (38-126); Aspartate Aminotransferase 32 IU/L (14-36); BUN Creatinine Ratio 24.2 (6-22); Bilirubin Total 0.9 mg/dL (0.2-1.3); Blood Urea Nitrogen 22 mg/dL (7-17); Carbon Dioxide 25 mmol/L (22-32); Chloride 108 mmol/L (98-107); Estimated Glomerular Filt Rate > 60 mL/min (>60); Glucose 87 mg/dL (80-110); HEMOLYSIS < 15 (0-50); Potassium 3.7 mmol/L (3.4-5.1); Sodium 139 mmol/L (137-145); Total Protein 7.1 g/dL (6.3-8.2)
[2024-04-16 13:07] LABS: Appearance Urine UA CLEAR; Bilirubin Urine UA NEGATIVE (NEGATIVE); Color Urine UA YELLOW; Glucose Urine UA NEGATIVE (Negative); Ketones Urine UA NEGATIVE (NEGATIVE); Leukocyte Esterase Urine UA NEGATIVE (NEGATIVE); Nitrite Urine UA NEGATIVE (Negative); Occult Blood Urine UA NEGATIVE (Negative); Protein Urine UA TRACE (Negative); Urobilinogen Urine UA 0.2 E.U./dL (0.2)
[2024-04-16 13:09] LABS: Troponin I < 0.012 ng/mL (0.01-0.034)
[2024-04-16 13:24] LABS: Bacteria Urine Occasional (0-1); Culture Indicated Urine Cult Not Indicated; RBC Urine 0-1/HPF (0-5/HPF); Squamous Epithelial Cell Urine 0-1 /HPF (0-5/HPF); Urine Volume 10mL (spun); WBC Urine 0-1/HPF (0-5/HPF)
[2024-04-16] MEDS: ACETAMINOPHEN 325 MG TABLET 650 MG PO (15:17)
== END 2024-04-16 15:30 | disposition home or self-care (01) ==
PROVIDERS: Emergency Provider Emergency Medicine; Family Provider Family Medicine; PCP Internal Medicine
DX: I10 Essential (primary) hypertension (principal)
CPT/HCPCS: 36415; 80053; 81001; 84484; 85025; 93005; 99283; 99284

== ENCOUNTER → 2024-05-30 13:33 | Outpatient (CLI) | payer OTHER, SELFPAY ==
--- NOTE | 2024-05-30 13:34 | DI.ECHO.S_ITS ---
[place] [facility]---------+ [facility] : : [address] : [place] : : [id number] : : Phone: [phone] Echocardiogram Report + + :Name: KAYLA PAREDES Study Date: 05/30/2024 Height: 69 in : :[facility] ReadingLocation: Weight: 207 lb : : Gender: Female BSA: 2.1 m2 : :: 1960 Age: 63 yrs BP: 152/99 mmHg: :Reason For Study: AORTIC STENOSIS : :Ordering Physician: MADELYN, : :LÓPEZ Performed By: Yancy Godoy : :Referring: LÓPEZ JOSHI : + + Interpretation Summary The left ventricle is normal in size. Left ventricular systolic function appears normal without focal wall motion abnormalities. The ejection fraction is estimated to be 55-60%. The right ventricle is normal in size and function. Pulmonary artery pressures cannot be estimated because of the lack of a measurable TR jet velocity. The left atrium is mildly dilated. The aortic valve is severely calcified. There is moderate to severe aortic stenosis. The peak aortic velocity is 3.9 m/sec. The calculated aortic valve area is 0.95 cm2. Compared to the prior echo study, there has been an increase in the severity of aortic stenosis. There is mild aortic regurgitation. Procedure: A two-dimensional transthoracic echocardiogram with color flow and Doppler was performed. The study quality was technically adequate. Comparison is made with the echocardiogram of 08/24/2022. The patient was in sinus rhythm with heart rates between 77-82 bpm during the exam. Left Ventricle: The left ventricle is normal in size. Proximal septal thickening is noted. Left ventricular systolic function appears normal without focal wall motion abnormalities. The ejection fraction is estimated to be 55- 60%. Diastolic function could not be accurately assessed due to unobtainable data. Right Ventricle: The right ventricle is normal in size and function. Atria: The left atrium is mildly dilated. Right atrial size is normal. There is no Doppler evidence for an interatrial shunt. Mitral Valve: The mitral valve leaflets are slightly calcified. There is moderate mitral annular calcification. There is no mitral regurgitation noted. Aortic Valve: The aortic valve is trileaflet. The aortic valve is severely calcified. There is severely reduced leaflet mobility. There is moderate to severe aortic stenosis. The peak aortic velocity is 3.9 m/sec. The aortic valve mean gradient is 37 mmHg. The calculated aortic valve area is 0.95 cm2. Compared to the prior echo study, there has been an increase in the severity of aortic stenosis. There is mild aortic regurgitation. Tricuspid Valve: The tricuspid valve leaflets are thin and pliable. There is a trace or physiologic amount of tricuspid regurgitation. Pulmonary artery pressures cannot be estimated because of the lack of a measurable TR jet velocity. Pulmonic Valve: The pulmonic valve leaflets are thin and pliable; valve motion is normal. There is no pulmonic valvular regurgitation. Great Vessels: The aortic root is normal size. The dimensions of the ascending aorta are normal. The aortic arch is at the upper limits of normal in size. The IVC is of normal diameter and collapses greater than 50% with a sniff. This suggests a low right atrial pressure of 3 mm Hg. Pericardium/ Pleura There is no pericardial effusion. There is no pleural effusion. MMode/2D Measurements & Calculations LVIDd: 4.1 cm LVOT diam: 2.1 cm LVIDs: 3.0 cm Ao root diam: 3.0 cm FS: 28.6 % asc Aorta Diam: 3.3 cm IVSd: 1.0 cm Ao Arch Diam (Prox Trans): 3.2 cm LVPWd: 1.1 cm LV lawrence. diameter/BSA (cm/m^2): 2.0 LV sys. diameter/BSA (cm/m^2): 1.4 LA A2 area: 24.4 cm2 RA long axis: 4.9 cm LA A4 area: 23.7 cm2 RA area: 15.1 cm2 LA length (vol): 5.9 cm RA vol: 40.0 ml LA vol: 82.9 ml RA : 19.1 ml/m2 LA vol index: 39.6 ml/m2 IVC diam: 1.9 cm RVD1 (basal): 3.6 cm RVD2 (mid): 2.5 cm TAPSE: 1.9 cm Doppler Measurements & Calculations Ao V2 max: 399.4 cm/sec LVOT Max Ousmane: 105.3 cm/sec Ao V2 mean: 285.3 cm/sec LV V1 max P.4 mmHg Ao max P.6 mmHg LV V1 VTI: 23.1 cm Ao mean P.5 mmHg LETICIA(I,D): 1.0 cm2 Ao V2 VTI: 81.4 cm LETICIA(V,D): 0.95 cm2 sev ratio: 0.28 LETICIA indexed to BSA (cm^2/m^2): 0.49 MV E max ousmane: 117.3 cm/sec PA V2 max: 103.9 cm/sec MV A max ousmane: 174.2 cm/sec PA V2 mean: 75.2 cm/sec MV E/A: 0.67 PA mean P.5 mmHg Med Peak E' Ousmane: 5.5 cm/sec PA pr(Accel): 25.9 mmHg E/E' med: 21.4 Lat Peak E' Ousmane: 6.1 cm/sec E/E' lat: 19.3 E/e' average: 20.3 MV dec time: 0.30 sec MVA(VTI): 1.9 cm2 Pulm A Revs Ousmane: 36.2 cm/sec MV V2 mean: 92.3 cm/sec Pulm A Revs Dur: 0.10 sec MV mean P.5 mmHg MV V2 VTI: 43.9 cm SV(LVOT): 83.5 ml Reading Physician:10:30 PM
== END ==
LOC: ECHO 13:33
PROVIDERS: Family Provider Family Medicine; PCP Internal Medicine; Referring Provider Internal Medicine; Visit Provider Internal Medicine
DX: I35.0 Nonrheumatic aortic (valve) stenosis (principal); I35.1 Nonrheumatic aortic (valve) insufficiency; I34.81 Nonrheumatic mitral (valve) annulus calcification
CPT/HCPCS: 93306

== ENCOUNTER → 2024-06-18 | Outpatient (CLI) | payer OTHER, SELFPAY ==
--- NOTE | 2024-06-18 07:05 | DI.RAD.S_ITS ---
PROCEDURE: XR DEXA AXIAL SKELETON INDICATIONS: SCREENING FOR OSTEOPOROSIS COMPARISON: None. FINDINGS: Lumbar Spine: Bone mineral density 0.929 g/cm2, T score -1.1, baseline. Left Femoral Neck: Bone mineral density 0.675 g/cm2, T score - 1.6. Left Hip: Bone mineral density 0.862 g/cm2, T score -0.7, baseline. Fracture Risk Calculation (when applicable): 10-year fracture risk of a major osteoporotic fracture 8.7 percent and of a hip fracture 0.9 percent. (T score greater or equal to -1.0 to: NORMAL) (T score from -1.1 to -2.4: OSTEOPENIA) (T score less than or equal to -2.5: OSTEOPOROSIS) IMPRESSION: Osteopenia Follow-up guidelines as follows: Osteoporosis: Consider a repeat DEXA and Vertebral Fracture Assessment (VFA) exam in 2 years or sooner if medically necessary, to reassess this patient's status. Osteopenia: Consider a repeat DEXA in 2-3 years to reassess this patient's status, or if there is a new clinical indication. Normal: Consider a repeat DEXA in 5 years or sooner, or if there is a new clinical indication. All treatment decisions require clinical judgment and consideration of individual patient factors, including patient preferences, comorbidities, previous drug use, risk factors not captured in the FRAX model (e.g., frailty, falls, vitamin D deficiency, increased bone turnover, interval significant decline in bone density ) and possible under- or over-estimation of fracture risk by FRAX. In addition, the NOF Guide recommends that FDA-approved medical therapies be considered in postmenopausal women and men age >= 50 years with a: * Hip or vertebral (clinical or morphometric) fracture * T-score of <=-2.5 at the spine or hip * Ten-year fracture probability by FRAX of >= 3% for hip fracture or >=20% for major osteoporotic fracture. Dictated by: Erickson Zamora M.D. on 06/18/2024 at 11:52 Approved by: Erickson Zamora M.D. on 06/18/2024 at 11:53
--- NOTE | 2024-06-18 08:00 | DI.US.S_ITS ---
PROCEDURE: US RENAL DOPPLER INDICATIONS: RESISTANT HTN TECHNIQUE: Real time scanning was performed of both kidneys, followed by Color and pulsed Doppler interrogation of the renal vessels. COMPARISON: None. FINDINGS: Aortic peak systolic velocity: 83 cm/s. Right side: Epps-scale imaging: Kidney is 10.9 cm long. No hydronephrosis. No nephrolithiasis. Renal cortex is normal in echogenicity. No suspicious solid renal masses. Proximal renal artery peak systolic velocity: 83 cm/s. Mid renal artery peak systolic velocity: 98 cm/s. Distal renal artery peak systolic velocity: 155 cm/s. Renal vein: Patent, without thrombus. Peak renal/aortic ratio (RAR): 1.9 Left side: Epps-scale imaging: Kidney is 157/88 cm long. No hydronephrosis. No nephrolithiasis. Renal cortex is normal in echogenicity. No suspicious solid renal masses. Proximal renal artery peak systolic velocity: 57 cm/s. Mid-renal artery peak systolic velocity: 59 cm/s. Distal renal artery peak systolic velocity: 63 cm/s. Renal vein: Patent, without thrombus. Peak renal/aortic ratio (RAR): 0.8 IMPRESSION: No hemodynamically significant stenosis. Dictated by: Erickson aZmora M.D. on 06/18/2024 at 11:30 Approved by: Erikcson Zamora M.D. on 06/18/2024 at 11:51
== END ==
PROVIDERS: Family Provider Family Medicine; PCP Internal Medicine; Referring Provider Internal Medicine; Visit Provider Internal Medicine
DX: Z78.0 Asymptomatic menopausal state (principal); I1A.0 Resistant hypertension; M85.89 Other specified disorders of bone density and structure, multiple sites
CPT/HCPCS: 77080; 93975